=== PATIENT | female | born 1990 | race American Indian/Alaskan Native ===

== ENCOUNTER 2021-05-22 05:50 | Emergency (ER) | payer OTHER ==
[2021-05-22 06:36] VITALS: BP 115/78
[2021-05-22] MEDS ORDERED: KETOROLAC 30 MG/1 ML INJ IM ONE (06:45)
--- NOTE | 2021-05-22 07:04 | Emergency Department Report ---
ED General Adult HPI - General Chief complaint: Chest Pain Stated complaint: CHEST PAIN/NECK PAIN/BLOOD PRESSURE Time Seen by Provider: 05/22/21 06:38 Source: patient Mode of arrival: Ambulatory Limitations: No Limitations - History of Present Illness Initial comments: Patient presents with chest pain and left neck pain. Yesterday morning, she awoke with tension in her left neck area. She states that it has been constant since she woke up yesterday morning. She describes it as a tightness in the left neck and trapezius area. Throughout the day yesterday and today, she had chest pain associated with this. She states that it felt like this tightness in her left trapezius area radiated down to her chest. The episodic chest pain lasted 15 seconds at most and resolved. She states that she was still having it today and is what prompted her visit. She did note yesterday that her blood pressure was higher than normal. She drank apple cider vinegar to try to help lower her blood pressure. Patient states that her chest discomfort and shoulder discomfort are not positional, pleuritic, or exertional. She has not noticed any aggravating or alleviating factors. The neck tightness has been constant. It does not radiate or migrate into the arm or to the back. She has no associated shortness of breath, nausea, diaphoresis, or lightheadedness. She states that she did have symptoms like this before. She saw physician. Everything was normal at that time. There is no family history of coronary artery disease. She is not a smoker. - Related Data Previous Rx's Medication Instructions Recorded Last Taken Type Ibuprofen [Motrin] 600 mg PO Q8H PRN #20 tablet 05/22/21 Unknown Rx Metaxalone [Skelaxin] 800 mg PO TID #9 tablet 05/22/21 Unknown Rx Allergies Allergy/AdvReac Type Severity Reaction Status Date / Time No Known Allergies Allergy Unverified 01/17/13 16:15 ED Review of Systems ROS: Stated complaint: CHEST PAIN/NECK PAIN/BLOOD PRESSURE Other details as noted in HPI Comment: All other systems reviewed and negative Constitutional: denies: fever Eyes: denies: vision change ENT: denies: throat pain Respiratory: denies: cough Cardiovascular: as per HPI Endocrine: denies: unexplained weight loss Gastrointestinal: denies: abdominal pain Genitourinary: denies: dysuria Musculoskeletal: as per HPI Skin: denies: rash Neurological: denies: headache Hematological/Lymphatic: denies: easy bruising ED Past Medical Hx - Past Medical History Previous Medical History?: Yes Additional medical history: Abscess - Surgical History Past Surgical History?: No - Family History Family history: diabetes, hypertension, other (Stroke) - Social History Smoking Status: Never Smoker Substance Use Type: None - Medications Home Medications: Home Medications Medication Instructions Recorded Confirmed Last Taken Type Ibuprofen [Motrin] 600 mg PO Q8H PRN #20 tablet 05/22/21 Unknown Rx Metaxalone [Skelaxin] 800 mg PO TID #9 tablet 05/22/21 Unknown Rx ED Physical Exam - General Limitations: No Limitations, Other (Pulse ox noted and normal) General appearance: alert, in no apparent distress - Head Head exam: Present: atraumatic, normocephalic - Eye Eye exam: Present: normal appearance, EOMI. Absent: scleral icterus - ENT ENT exam: Present: normal orophraynx, normal external ear exam - Neck Neck exam: Present: normal inspection, tenderness (Left) - Respiratory Respiratory exam: Present: normal lung sounds bilaterally. Absent: respiratory distress - Cardiovascular Cardiovascular Exam: Present: regular rate, normal rhythm - GI/Abdominal GI/Abdominal exam: Present: soft. Absent: tenderness - Extremities Exam Extremities exam: Present: normal capillary refill. Absent: calf tenderness - Back Exam Back exam: Absent: CVA tenderness (R), CVA tenderness (L) - Neurological Exam Neurological exam: Present: alert, oriented X3, CN II-XII intact, normal gait. Absent: motor sensory deficit - Psychiatric Psychiatric exam: Present: normal affect, normal mood - Skin Skin exam: Present: warm, dry ED Course Vital Signs 05/22/21 06:35 Temperature 98.2 F Pulse Rate 98 H Respiratory 18 Rate Blood Pressure 115/78 [Right] O2 Sat by Pulse 97 Oximetry - Reevaluation(s) Reevaluation #1: 05/22/21 07:14 EKG have been noted. X-rays pending Reevaluation #2: 05/22/21 08:28 X-ray was noted and the patient was discharged. ED Medical Decision Making - EKG Data -: EKG Interpreted by Me - EKG Data 05/22/21 07:14 0630-EKG shows normal sinus rhythm at 90. Intervals are normal including a QRS of 86 and a QT corrected of 423. Patient has no ST elevation suggestive of STEMI. There is no ST depression suggestive of ischemia. There is good R wave progression. This is a normal EKG. - Radiology Data Radiology results: report reviewed - Medical Decision Making Patient presents with left neck pain and chest pain. The chest pain is certainly not cardiac in nature based on her presentation. It was fleeting, lasting 15 seconds only at a time. It was not exertional. She had no other associated signs or symptoms. She does not have any significant cardiac risk factor in the form of family history, hypertension, diabetes, hypercholesterolem ia, cocaine use, or tobacco use. EKG was normal. There was no indication for further cardiac work-up. Symptoms do not seem to be pleuritic. She is not hypoxic or tachycardic. There is no radiographic evidence of pneumonia, pneumothorax, or widened mediastinum. I do not believe this represents pulmonary edema or aortic dissection based on her presentation. She certainly does not have risk factors for pulmonary embolism. Patient was treated symptomatically for the trapezius spasm and referred for outpatient evaluation and follow-up. Critical Care Time: No Critical care attestation.: If time is entered above; I have spent that time in minutes in the direct care of this critically ill patient, excluding procedure time. ED Disposition Clinical Impression: Intermittent chest pain Strain of left trapezius muscle Qualifiers: Encounter type: initial encounter Qualified Code(s): S46.812A - Strain of other muscles, fascia and tendons at shoulder and upper arm level, left arm, initial encounter Disposition: HOME / SELF CARE / HOMELESS Is pt being admited?: No Condition: Stable Instructions: Muscle Strain, [id number], Nonspecific Chest Pain, Adult, How to Use Cold Therapy Additional Instructions: Try ice and heat to see which works better for your muscle spasm. Return for problems. Follow-up with your family doctor or the referral physician for recheck. Return for problems or concerns. Prescriptions: Ibuprofen [Motrin] 600 mg PO Q8H PRN #20 tablet PRN Reason: Pain Metaxalone [Skelaxin] 800 mg PO TID #9 tablet Referrals: REINA PINA MD [Primary Care Provider] - 3-5 Days MALINA STEARNS MD [Staff Physician] - 3-5 Days
--- NOTE | 2021-05-22 07:43 | XRay Report ---
CHEST 2 VIEWS INDICATION: cp. COMPARISON: None FINDINGS: SUPPORT DEVICES: None. HEART: Within normal limits. LUNGS/PLEURA: No acute air space or interstitial disease. No pneumothorax. ADDITIONAL FINDINGS: None. IMPRESSION: 1. No acute findings. Signer Name: Harrison Rousseau MD Signed: 05/22/2021 7:38 AM Workstation Name: [id number]
--- NOTE | 2021-05-23 14:34 | Electrocardiograph Report ---
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
== END 2021-05-22 09:26 | disposition home or self-care (01) ==
LOC: ED 05:50
DX: S46.912A Strain of unspecified muscle, fascia and tendon at shoulder and upper arm level, left arm, initial encounter (principal); R07.9 Chest pain, unspecified; X58.XXXA Exposure to other specified factors, initial encounter; Y93.89 Activity, other specified; Y92.89 Other specified places as the place of occurrence of the external cause; Y99.8 Other external cause status
CPT/HCPCS: 71046; 93005; 93010; 96372; 99283; J1885